=== PATIENT | male | born 1945 | race Caucasian/White ===

== ENCOUNTER 2020-06-26 10:52 | Emergency (ER) | payer OTHER, MEDICARE, SELFPAY ==
[2020-06-26 10:52] VITALS: BP 166/93; PULSE 99; RESP 16; TEMP 37; O2SAT 95; BMI 42.0
[2020-06-26 11:39] LABS: Absolute Lymphocyte Count 1.42 X10^3/uL (0.83-4.51); Absolute Neutrophil Count 17.9 X10^3/uL (2.0-7.7); Basophil# 0.06 X10^3/uL; Basophil% 0.3 % (0-1); Eosinophil# 0.05 X10^3/uL; Eosinophils% 0.2 % (0-5); Hematocrit 44.8 % (40-54); Hemoglobin 14.7 g/dL (13.0-16.5); Lymphocyte # 1.42 X10^3/ul (4.0); Lymphocyte % 6.9 % (19-41); Mean Corp Hgb Conc 32.8 g/dL (32-36); Mean Corpuscular Hgb 28.9 pg (27.0-32.0); Mean Corpuscular Volume 88.2 fL (80-94); Monocyte# 1.03 X10^3/uL; NRBC Flagged by Analyzer 0 % (0-5); Neutrophil # 17.87 X10^3/uL (2.7-7.7); Platelet Count 245 K/mm3 (150-450); RBC Distribution Width CV 13.3 % (11.6-14.6); RBC Distribution Width SD 43.1 fl (35.1-43.9); Red Blood Count 5.08 M/mm3 (4.6-6.2); White Blood Count 20.6 K/mm3 (4.4-11.0)
[2020-06-26] MEDS: Phenazopyridine 95 MG Tablet 190 MG PO (11:40)
[2020-06-26 11:43] LABS: Mucous, Urine 0 SEEN /hpf (<or=2+); Squamous Epithelial Cells - UA 0 SEEN /hpf (0-5)
[2020-06-26 11:44] VITALS: BP 166/93; PULSE 99; RESP 16; TEMP 37; O2SAT 95
--- NOTE | 2020-06-26 11:44 | ED.DCSUM_ITS ---
- ER Visit Summary Date of Service: 06/26/20 Chief Complaint: Dysuria and frequency History of Present Illness: The patient is a 75 M who goes to the [facility]. He reports he has dysuria and frequency that began at 8:00 last night. He feels as though he is not emptying his bladder completely. He denies any hematuria. No flank pain. No nausea or vomiting. He has had subjective fever and chills. Physical Examination: Vitals: Stable. Afebrile. General: Well-nourished and well-developed. Head: Normocephalic atraumatic. Neck: Supple, no lymphadenopathy. No JVD. Nontender. Cardiovascular: Regular rate and rhythm. 2 out of 6 systolic murmur. Respiratory: No respiratory distress. Clear to auscultation bilaterally. Abdominal: Soft, nontender, nondistended, normal bowel sounds. No guarding, rebound, or peritoneal signs. Back: Nontender. Extremities: Nontender, no edema. Skin: Normal color, no rash. Neurologic: Alert and oriented ?3. Cranial nerves II through XII are intact. Normal strength and sensation. Psych: Normal affect. Test Results: CBC shows a white count of 20.6 with second neutrophils 87 lymphocytes of 7. BMP shows a glucose 145. UA shows nitrites, blood, greater than 100 blood cells, 2+ bacteria. Lactic acid is 1.3. Emergency Department Course and Treatment: Patient had an IV placed. He is given a dose of Rocephin IV. He was given Azo p.o. He is resting more comfortably. Treatment Plan: Patient feels well and would like to go home. He will be discharged with Cipro and Pyridium. Instructed to follow-up with his primary care physician in 3 to 5 days for another exam. Return to the emergency department for any worsening symptoms. Disposition: To home in improved and stable condition. Impression: 1. Urinary tract infection. This note was generated with [employer] dictation software. It may contain incorrect words, spelling, and punctuation that were not noted in review of the chart prior to signing ED Disposition - Plan for ED Patient: Instructions: ED Bladder Infection, Male (Adult) Prescriptions: Ciprofloxacin [Cipro] 500 mg PO BID #14 tablet Phenazopyridine HCl [Pyridium] 200 mg PO BID PRN PRN #10 tablet PRN Reason: Pain Referrals: Doctor,Your [STAFF PHYSICIAN] - 3-5 Days
[2020-06-26 11:50] LABS: Color, Urine Yellow (Yellow); Glucose, Dipstick Normal (Normal); Ketone-Dipstick Negative (Negative); Leukocyte Esterase-Dipstick 500 /ul (Negative); Nitrite-Dipstick Positive (Negative); Occult Blood-Urine 250 /ul (Negative); Protein-Dipstick 30 mg/dl (Negative); Specific Gravity, Urine 1.015 (1.002-1.030); Urine Bilirubin Dipstick Negative (Negative); Urine Clarity Cloudy (Clear); Urine Urobilinogen 4 mg/dl (Normal)
[2020-06-26 11:56] LABS: Anion Gap 7 (5-15); BUN 13 mg/dL (7-18); BUN/Creat Ratio 11.2 RATIO (10-20); Calcium,Total 8.5 mg/dL (8.5-10.1); Chloride 105 mmol/L (98-107); Creatinine, Serum 1.16 mg/dL (0.70-1.30); EST Glomerular Filtration Rate 66 mL/min (>60); Est Glom Filt Rate - Afr Amer 79 mL/min (>60); Estimated Creatinine Clearance 49.34 ml/min; Glucose 145 mg/dL (74-106); Potassium 3.6 mmol/L (3.5-5.1); Sodium Level 137 mmol/L (136-145)
[2020-06-26 12:01] LABS: Bacteria 2+ /hpf (None Seen); Red Blood Cells-Urine 5-10 SEEN /hpf (0-5); White Blood Cells >100 SEEN /hpf (0-5)
[2020-06-26 12:03] LABS: Lactic Acid 1.3 mmol/L (0.4-1.9)
[2020-06-26] MEDS: Ceftriaxone 1 GM/50 ML BAG IV (12:21)
[2020-06-26 13:40] VITALS: PULSE 94; RESP 17; O2SAT 96
== END 2020-06-26 13:41 | disposition home or self-care (01) ==
LOC: ED 12:15
PROVIDERS: Emergency Provider Emergency Medicine
DX: N39.0 Urinary tract infection, site not specified (principal); E11.9 Type 2 diabetes mellitus without complications; I10 Essential (primary) hypertension; E78.00 Pure hypercholesterolemia, unspecified; Z79.899 Other long term (current) drug therapy
CPT/HCPCS: 80048; 81001; 83605; 85025; 87077; 87086; 87088; 87186; 96361; 96365; 99283; A4216

== ENCOUNTER 2023-08-20 06:41 | Day surgery (SDC) | payer OTHER, SELFPAY ==
[2023-08-20] VITALS (8 sets, daily range): BP systolic 90–127; BP diastolic 69–86; PULSE 61–77; RESP 16–18; TEMP 36.2–36.3; O2SAT 91–98; BMI 40.7
[2023-08-20] MEDS: Lactated Ringers 1,000 ML 15 ML IV (07:06)
[2023-08-20 07:31] LABS: Bedside Glucose 112 mg/dL (74-106)
--- NOTE | 2023-08-20 08:00 | COLBX_PTH ---
PATIENT: CLAUDE CHRISTIANSON Jr. LOC: EN U#:[id number] AGE/SX: 78/M ROOM: RE08/20/[address]: Dr. Adarsh Antonio MD : 1945 BED: DIS: 08/20/2023 SPEC #: [id number] RECD: 08/20/23 10:26 STATUS: LB RERajendra #: [id number] JOSIAH: 08/20/23 08:[address]: Adarsh Antonio DEPT: SURGICAL PATHOLOGY RECD BY: Latrice Bell ENTERED: 08/20/23 12:14 SP TYPE: COLON BX OTHR DR: [facility] Tissues: Descending colon Procedures: Surgery Specimen Level IV HEADER OPERATION: Colonoscopy- polypectomy PRE-OP DIAGNOSIS: History of colon polyps TISSUE SUBMITTED: Proximal descending colon polyp MICROSCOPIC DIAGNOSIS Proximal descending colon polyp, polypectomy: Hyperplastic polyp. Fragments of fecal material. CONNOR/ 08/21/23 MICROSCOPIC DESCRIPTION Slides are reviewed. GROSS DESCRIPTION Received in fixative is one container labeled with the patient's name and designated Proximal descending colon polyp. The specimen consists of one irregular fragment of light lopez soft tissue that measures 0.4 x 0.4 x 0.2 cm. The specimen is totally submitted in one cassette. Lenora 08/20/23 TC:1 CPT: 43215
--- NOTE | 2023-08-20 08:14 | HP.PCM_ITS ---
History and Physical Date of Admission: 08/20/23 Intake Vital Signs 07/03/2408:44 Height 5 ft 5 in Weight: 259 lb 2 oz BMI 43.1 BP 116/69 Blood Pressure Location Rt brachial Position Sitting Respiration 17 Pulse 66 Pulse Source Monitor Temp 97.9 F Temp Source Temporal Pulse Oximetry (%) 94 Oxygen Delivery Method room air Intake Visit Reasons: COLONOSCOPY Chief Complaint: colonoscopy Restorative Coordinator Required: No Is patient in pain?: No Allergies No Known Allergies Allergy (Verified 07/03/23 09:46) Medications Calcium 600 mg-D3 10 Mcg Sfgl 1 tab PO DAILY 06/26/20 [History Confirmed 07/03/23] amlodipine 10 mg tablet 10 mg PO DAILY 06/26/20 [History Confirmed 07/03/23] aspirin 81 mg chewable tablet 81 mg PO DAILY 06/26/20 [History Confirmed 07/03/23] atorvastatin 80 mg tablet 80 mg PO QHS 06/26/20 [History Confirmed 07/03/23] ciprofloxacin HCl 500 mg tablet 500 mg PO BID #14 tabs 06/26/20 [Rx Confirmed 07/03/23] enalapril maleate 10 mg tablet 10 mg PO BID 06/26/20 [History Confirmed 07/03/23] hydrochlorothiazide 25 mg tablet 12.5 mg PO DAILY 06/26/20 [History Confirmed 07/03/23] phenazopyridine 200 mg tablet 200 mg PO BID PRN PRN Pain #10 tabs 06/26/20 [Rx Confirmed 07/03/23] PFSH Medical History (Updated 07/03/23 @ 11:[address] Adarsh Antonio MD) Clear cell carcinoma of kidney H/O hydrocele Surgical History (Updated 07/03/23 @ 09:44 by Jackie Vital LPN) H/O lumpectomy Stented coronary artery Social History (Updated 07/03/23 @ 09:44 by Jackie Vital LPN) Smoking Status: Never smoker alcohol intake: current substance use type: does not use HPI HPI HPI: Patient is a 78-year-old male here for surveillance colonoscopy. His last colonoscopy was 7 years ago and a polyp was removed. He denies any abdominal pain or blood in the stool. He has no family history of colon cancer. ROS General General: No weight change or fatigue HEENT HEENT: No difficulty swallowing Endo Endocrine: Yes diabetes mellitus Musc Musculoskeletal: Yes back problems and arthritis Cardio Cardiovascular: Yes murmur, heart disease, high blood pressure and heart stent Psych Psychiatric: No depression or anxiety Resp Respiratory: Yes shortness of breath and Yes sleep apnea Gastro Gastrointestinal: No abdominal pain, No nausea or vomiting, No diarrhea, No constipation, No blood in stool, No acid reflux, No hemorrhoids, No ulcers, No gallbladder problem and No black,tarry stools David Hematologic: Yes blood thinners Additional Details: low dose aspirin Neuro Neurologic: Yes numbness and Yes tingling Exam Const General: cooperative Orientation: alert and oriented x3 HENMT Head: normal to inspection Neck Neck: normal visual inspection and full ROM Chest Chest palpation & inspection: normal inspection of the chest Resp Effort & Inspection: normal respiratory effort Auscultation: clear to auscultation bilaterally Cardio Rate: regular rate Rhythm: regular rhythm GI Inspection: non-distended Palpation: soft and nontender Skin General: no rashes or lesions noted Neuro General: patient alert and patient oriented x3 Extrem General: full ROM Psych Appearance: grossly normal Mental Status: mental status grossly normal Assessment and Plan Assessment and Plan (1) History of colon polyps: Status: Acute Plan: The patient has a history of polyps and requires surveillance colonoscopy. I explained endoscopy in detail to the patient. I explained the risks including but not limited to stroke or heart attack with anesthesia, perforation of the GI tract, bleeding, infection. I explained that any of these could necessitate further emergency surgery. The patient understands and all questions were answered sufficiently. The patient wishes to proceed with procedure. Adarsh Antonio MD Pager: [facility] [address] [place] [address], [address] [place] [address] Office: I have examined the patient and the H&P has been reviewed. There are no clinical changes since date of exam.
--- NOTE | 2023-08-20 08:35 | OP.CCLET_ITS ---
08/20/2023 [facility] Re : Colonoscopy procedure for [facility] This procedure was performed on Sunday, August 20, 2023. My impressions and recommendations are as follows: Impressions : - One small polyp in the proximal descending colon, removed with a hot snare. Resected and retrieved. - The examination was otherwise normal on direct and retroflexion views. Recommendations : - Discharge patient to home. - Resume previous diet. - Continue present medications. - Await pathology results. - Repeat colonoscopy in 5 years for surveillance. My findings are described in the full procedure note, which is enclosed. If I can be of further assistance, please feel free to contact me at Doctor phone number(s): , Work: . Sincerely, Adarsh Antonio MD 08/20/2023 8:34:14 AM This report has been signed electronically.
--- NOTE | 2023-08-20 08:35 | OP.COLON_ITS ---
Patient Name: Alex Adame Procedure Date: 08/20/2023 7:57 AM Date of : 1945 Age: 78 Procedure: Colonoscopy Indications: High risk colon cancer surveillance: Personal history of colonic polyps Providers: Adarsh Antonio MD Referring MD: Adarsh Antonio MD Medicines: Monitored Anesthesia Care Patient Profile: This is a 78 year old male. Refer to note in patient chart for documentation of history and physical. Last Colonoscopy: 5 years ago. Complications: No immediate complications. Procedure: Pre-Anesthesia Assessment: - Prior to the procedure, a History and Physical was performed, and patient medications and allergies were reviewed. The patient's tolerance of previous anesthesia was also reviewed. The risks and benefits of the procedure and the sedation options and risks were discussed with the patient. All questions were answered, and informed consent was obtained. Prior Anticoagulants: The patient has taken no anticoagulant or antiplatelet agents. After reviewing the risks and benefits, the patient was deemed in satisfactory condition to undergo the procedure. After I obtained informed consent, the scope was passed under direct vision. Throughout the procedure, the patient's blood pressure, pulse, and oxygen saturations were monitored continuously. The pediatric colonoscope was introduced through the anus and advanced to the cecum, identified by appendiceal orifice and ileocecal valve. The colonoscopy was performed without difficulty. The patient tolerated the procedure well. The quality of the bowel preparation was good. The ileocecal valve, appendiceal orifice, and rectum were photographed. Scope In: 8:17:40 AM Scope Withdrawal Time 0 hours 4 minutes 38 seconds Scope Out: 8:28:22 AM Total Procedure Duration Time 0 hours 10 minutes 42 seconds Findings: A small polyp was found in the proximal descending colon. The polyp was removed with a hot snare. Resection and retrieval were complete. The exam was otherwise without abnormality on direct and retroflexion views. Impression: - One small polyp in the proximal descending colon, removed with a hot snare. Resected and retrieved. - The examination was otherwise normal on direct and retroflexion views. Recommendation: - Discharge patient to home. - Resume previous diet. - Continue present medications. - Await pathology results. - Repeat colonoscopy in 5 years for surveillance. Procedure Code(s): --- Professional --- 46360, Colonoscopy, flexible; with removal of tumor(s), polyp(s), or other lesion(s) by snare technique Diagnosis Code(s): --- Professional --- Z86.010, Personal history of colonic polyps D12.4, Benign neoplasm of descending colon CPT copyright 2021 [employer]. All rights reserved. The codes documented in this report are preliminary and upon senior clinical sas programmer review may be revised to meet current compliance requirements. Adarsh Antonio MD 08/20/2023 8:34:14 AM This report has been signed electronically. Number of Addenda: 0 Note Initiated On: 08/20/2023 7:57 AM
== END 2023-08-20 09:54 | disposition home or self-care (01) ==
LOC: EN 06:42 → AC 06:43
PROVIDERS: Visit Provider Surgery
PROC: 0DJD8ZZ Inspection of Lower Intestinal Tract, Via Natural or Artificial Opening Endoscopic (ICD-10-PCS; CPT 45378; principal; 2023-08-20 07:55)
DX: Z12.11 Encounter for screening for malignant neoplasm of colon (principal); E11.9 Type 2 diabetes mellitus without complications; K63.5 Polyp of colon; Z86.010 Personal history of colon polyps; I10 Essential (primary) hypertension; Z79.01 Long term (current) use of anticoagulants; E78.00 Pure hypercholesterolemia, unspecified
CPT/HCPCS: 45385; 82962; 88305; J7120; J2405